=== PATIENT | male | born 1950 | race African-American/Black ===

== ENCOUNTER 2017-07-16 07:36 | Emergency (ER) | payer MEDICARE, MEDICAID ==
[~2017-07-16] VITALS: Ht 188 cm; Wt 98.0 kg
[~2017-07-16 07:36] MED LIST: ACCURETIC1 TAB OR; ACETAMINOPHEN325 MG PO; ADLT ASA LOW81 MG PO; ALLERGY OTC OR; ALLERGY10 M1 PO; ALTOPREV40 MG PO; AMBIEN5 MG PO; AMOXICILLIN250 M1 PO; ATENOLOL100 MG PO; ATENOLOL50 MG OR; ATENOLOL50 MG PO; AUGMENTIN500TAB PO; AVODART0.5 MG PO; BABY ASPIRIN81 MG PO; BL POTASSIUM99 MG OR; CALAN SR180 MG PO; CATAPRES-T0.1 MG/24 TD; CLOBETASOL E0.05 % EX; CLOTRIM/BET2 EX; CLOTRIMAZOLE/BETAME1 TOP; CORTISPORIN OP7.5 ML OP; CYCLOBENZAPR10 MG PO; DEPO-MEDROL40 MG/ML IJ; DICLOFENAC SODI75 MG PO; DICLOFENAC75 MG PO; DIGOXIN0.25 MG PO; DIPHENHYDRAM OR; DIPHENHYDRAM PO; FLOMAX0.4 M1; FLOMAX0.4 M1 PO; FLONASE NASAL50 MCG; FUROSEMIDE40 MG PO; GABAPENTIN300 MG PO; KEFLEX500 MG PO; LEVEMIR FL100 UNIT/M SC; LEVOTHYROXIN50 MCG PO; LIDODERM5 %; LIDODERM5 % EX; LIDODERM5 % TD; LORTAB 10 PO; LOTRISONE EX; LOTRISONE TOP; LYRICA75 MG PO; MEDDOSEPAK PO; MELOXICAM7.5 MG PO; METFORMIN500 M1 PO; METFORMIN500 MG PO; METO50TA52 OR; METOPROLOL TAR100 MG PO; MICONAZOLE23 EX; NITROSTAT0.4 MG SL; NORCO1 TA1 PO; NORCO1 TAB PO; NOVOLIN 701000 UNITS SC; NOVOLOG FLEXPEN SC; OMEPRAZOLE40 MG PO; ONE TOUCH ULTRA 100 EX; OXYBUTININ OR; OXYBUTININ PO; OXYBUTYNIN5 MG PO; OXYCO/APAP1 TA1; OXYCO/APAP1 TA1 PO; OXYCOD/APAP1 TA4 PO; PERCOCET 10/31 COMBO PO; PERCOCET1 TA5 PO; PLAVIX75 MG PO; PRAVASTATIN40 MG PO; PREDNISONE10 MG PO; PREDNISONE20 MG PO; PRILOSEC40 MG PO; QUINAPRIL10 MG OR; QUINAPRIL10 MG PO; QUINAPRIL20 MG PO; RESTORIL15 MG PO; SAW PALMETTO160 MG OR; TAMSULOSIN HCL0.4 MG PO; TEMAZEPAM15 MG PO; TRAMADOL HCL50 MG PO; TRAZODONE50 MG PO; TRIAM/NYSTAT EX; TRIAMCINOLON0.11 EX; TRIAMCINOLON0.5 % EX; ULTRAM50 MG OR; VERAPAMIL120 M1 PO; VIAGRA100 MG PO; VIAGRA25 MG PO; ZOFRAN ODT4 MG PO; ZPAK PO; [UNRECOGNIZED DRUG - SUPPLY] SC
[2017-07-16 08:32] LABS: INFLUENZA A NONE DETECTED (NONE DETECT); INFLUENZA B NONE DETECTED (NONE DETECT)
[2017-07-16 08:43] VITALS: BP 160/85
== END 2017-07-16 09:00 | disposition home or self-care (01) ==
LOC: ED 07:36
PROVIDERS: Emergency Medicine
DX: B34.9 Viral infection, unspecified (principal); R51 Headache; R11.2 Nausea with vomiting, unspecified; M79.1 Myalgia

== ENCOUNTER → 2018-09-03 | Outpatient (REF) | payer MEDICARE, MEDICAID ==
[~2018-09-03] MED LIST changes: +FENTANYL25 MCG/HR TD; +ROSUVASTATIN CA40 MG PO
[2018-09-03 14:02] LABS: HEMATOCRIT 37.7 % (39.0-50.0); HEMOGLOBIN 12.4 g/dl (14.0-18.0); MEAN CELL VOLUME 91.5 fL CALC (80.0-100.0); MEAN CORPUSCULAR HGB 30.1 pG CALC (26.0-32.0); MEAN CORPUSCULAR HGB CONC 32.9 g/L CALC (32.0-36.0); NEUT# 1.94 thou/uL (1.82-7.42); RED BLOOD COUNT 4.12 mill/uL (4.70-6.10); RED CELL DISTRI WIDTH 13.2 % (11.5-15.5)
[2018-09-03 14:19] LABS: ACT PARTIAL THROMBO TIME 24.8 SECONDS (20.0-32.5); ANION GAP 12 (6-22 (CALC)); BUN 14 mg/dL (8-23); BUN/CREATININE RATIO 17 (12-20 (CALC)); CARBON DIOXIDE 27 mmol/l (22-30); CHLORIDE 108 mmol/l (95-108); CREATININE 0.8 mg/dL (0.7-1.3); GFR > 60 ML/MIN (>=60 (CALC)); GFR FOR AFR.AMER. > 60 ML/MIN (>=60 (CALC)); POTASSIUM 4.4 mmol/l (3.5-5.1); PROTHROMBIN TIME 10.6 SECONDS (9.0-12.5); SODIUM 142 mmol/l (137-146)
== END | disposition home or self-care (01) ==
LOC: LAB 13:25
PROVIDERS: ATTEND Internal Medicine Interventional Cardiology
DX: Z01.818 Encounter for other preprocedural examination (principal); I21.4 Non-ST elevation (NSTEMI) myocardial infarction; Z79.01 Long term (current) use of anticoagulants; Z01.811 Encounter for preprocedural respiratory examination

== ENCOUNTER → 2019-01-28 | Outpatient (REF) | payer MEDICARE, MEDICAID ==
[2019-01-28 09:42] LABS: HEMOGLOBIN 12.7 g/dl (14.0-18.0); IMMATURE GRANULOCYTES 0.3 % (0.0-5.0); MEAN CELL VOLUME 92.9 fL CALC (80.0-100.0); MEAN CORPUSCULAR HGB 30.2 pG CALC (26.0-32.0); MEAN CORPUSCULAR HGB CONC 32.6 g/L CALC (32.0-36.0); NEUT# 1.51 thou/uL (1.82-7.42); RED BLOOD COUNT 4.2 mill/uL (4.70-6.10); RED CELL DISTRI WIDTH 13.4 % (11.5-15.5)
[2019-01-28 10:00] LABS: ALKALINE PHOSPHATASE 76 u/l (38-126); ANION GAP 11 (6-22 (CALC)); BILIRUBIN, TOTAL 0.4 mg/dL (0.0-1.4); BUN 19 mg/dL (8-23); BUN/CREATININE RATIO 24 (12-20 (CALC)); CALCULATED LDLCHOLESTEROL 62 mg/dL (62-129 (CALC)); CARBON DIOXIDE 26 mmol/l (22-30); CHLORIDE 106 mmol/l (95-108); CHOLESTEROL HDL RATIO 2.3 (<4.4 (CALC)); CREATININE 0.8 mg/dL (0.7-1.3); GFR > 60 ML/MIN (>=60 (CALC)); GFR FOR AFR.AMER. > 60 ML/MIN (>=60 (CALC)); HDL CHOLESTEROL 59 mg/dL (>=40); POTASSIUM 4.4 mmol/l (3.5-5.1); SGOT/AST 38 u/l (19-48); SODIUM 138 mmol/l (137-146); TOTAL CHOLESTEROL 133 mg/dl (0-199); TOTAL PROTEIN 6.8 g/dL (6.3-8.2); TRIGLYCERIDES REFLEX TO dLDL 61 mg/dl (30-149); VLDL CHOLESTROL 12 mg/dl (0-38 (CALC))
[2019-01-28 10:31] LABS: TSH, 3RD GENERATION 2.33 uIU/mL (0.47 - 4.68)
== END | disposition home or self-care (01) ==
LOC: LAB 08:49
PROVIDERS: ATTEND Internal Medicine Geriatric Medicine
DX: M54.16 Radiculopathy, lumbar region (principal); E03.9 Hypothyroidism, unspecified; I10 Essential (primary) hypertension; Z12.5 Encounter for screening for malignant neoplasm of prostate

== ENCOUNTER 2019-09-28 20:23 | Emergency (ER) | payer MEDICARE, MEDICAID ==
[~2019-09-28] VITALS: Ht 188 cm; Wt 100.0 kg
[~2019-09-28 20:23] MED LIST changes: +CRESTOR20 MG PO; +ENTRESTO 49-511 TAB PO; +FINASTERIDE5 MG PO; +NITROGLYCERIN0.4 MG SL; +TAMSULOSIN0.4 MG PO; +TOPROL XL100 MG PO
[2019-09-28 21:00] LABS: URINE BILIRUBIN - DIPSTICK NEGATIVE (NEGATIVE); URINE BLOOD DIPSTICK TRACE-LYSED (NEGATIVE); URINE COLOR YELLOW; URINE GLUCOSE - DIPSTICK NEGATIVE (NEGATIVE); URINE KETONE NEGATIVE (NEGATIVE); URINE LEUK ESTERASE NEGATIVE (NEGATIVE); URINE NITRITE - DIPSTICK NEGATIVE (Negative); URINE PH 6.5 (4.5-8.0); URINE PROTEIN - DIPSTICK NEGATIVE (NEG-TRACE); URINE SPECIFIC GRAVITY 1.015; URINE UROBILINOGEN - DIPSTICK 0.2 E.U./dL (0.2)
[2019-09-28 21:29] VITALS: BP 147/65
== END 2019-09-28 21:32 | disposition home or self-care (01) ==
LOC: ED 20:23
PROVIDERS: Emergency Medicine
PROC: 0T9B70Z Drainage of Bladder with Drainage Device, Via Natural or Artificial Opening (ICD-10-PCS; principal; 2019-09-28)
DX: R33.9 Retention of urine, unspecified (principal); F17.200 Nicotine dependence, unspecified, uncomplicated

== ENCOUNTER 2019-09-29 10:01 | Emergency (ER) | payer MEDICARE, MEDICAID ==
[~2019-09-29] VITALS: Ht 188 cm; Wt 99.1 kg
[2019-09-29 11:12] VITALS: BP 155/77
== END 2019-09-29 11:20 | disposition home or self-care (01) ==
LOC: ED 10:01
DX: T83.84XA Pain due to genitourinary prosthetic devices, implants and grafts, initial encounter (principal); T83.031A Leakage of indwelling urethral catheter, initial encounter; I10 Essential (primary) hypertension; F17.200 Nicotine dependence, unspecified, uncomplicated; Y84.6 Urinary catheterization as the cause of abnormal reaction of the patient, or of later complication, without mention of misadventure at the time of the procedure

== ENCOUNTER 2019-12-17 | Day surgery (SDC) | payer MEDICARE, MEDICAID ==
[~2019-12-17] MED LIST changes: +ASPIRIN81 MG PO
== END 2019-12-17 10:50 | disposition home health service (06) ==
PROC: 0VB08ZZ Excision of Prostate, Via Natural or Artificial Opening Endoscopic (ICD-10-PCS; principal; 2019-12-17)
DX: N40.1 Benign prostatic hyperplasia with lower urinary tract symptoms (principal); N13.8 Other obstructive and reflux uropathy; R33.8 Other retention of urine; R39.12 Poor urinary stream; I10 Essential (primary) hypertension; I25.10 Atherosclerotic heart disease of native coronary artery without angina pectoris; E03.9 Hypothyroidism, unspecified; F17.210 Nicotine dependence, cigarettes, uncomplicated; Z95.1 Presence of aortocoronary bypass graft

== ENCOUNTER 2021-07-02 00:35 | Observation (INO) | payer MEDICARE, MEDICAID ==
[~2021-07-02] VITALS: Ht 185.4 cm; Wt 87.0 kg
[2021-07-02] MEDS ORDERED: OXYCODONE20 M1 PO (01:18)
[2021-07-02 02:16] LABS: HEMOGLOBIN 10.8 g/dl (14.0-18.0); IMMATURE GRANULOCYTES 0.4 % (0.0-5.0); MEAN CELL VOLUME 95.8 fL CALC (80.0-100.0); MEAN CORPUSCULAR HGB 30.4 pG CALC (26.0-32.0); MEAN CORPUSCULAR HGB CONC 31.8 g/dL CAL (32.0-36.0); NEUT# 5.76 thou/uL (1.82-7.42); RED BLOOD COUNT 3.55 mill/uL (4.70-6.10); RED CELL DISTRI WIDTH 13.2 % (11.5-15.5)
[2021-07-02 02:46] LABS: ALBUMIN 3.8 g/dL (3.2-5.0); ALKALINE PHOSPHATASE 62 u/l (38-126); ANION GAP 11 (6-22 (CALC)); BUN 16 mg/dL (8-23); BUN/CREATININE RATIO 21 (12-20 (CALC)); CARBON DIOXIDE 24 mmol/l (22-30); CHLORIDE 106 mmol/l (95-108); CREATININE 0.8 mg/dL (0.7-1.3); GFR > 60 ML/MIN (>=60 (CALC)); GFR FOR AFR.AMER. > 60 ML/MIN (>=60 (CALC)); POTASSIUM 3.9 mmol/l (3.5-5.1); SGOT/AST 40 u/l (19-48); SODIUM 137 mmol/l (137-146); TOTAL PROTEIN 6.7 g/dL (6.3-8.2)
[2021-07-02 02:54] LABS: BILIRUBIN, TOTAL 0.5 mg/dL (0.0-1.4)
[2021-07-02 02:59] LABS: MYOGLOBIN 67 ng/mL (0 - 121)
[2021-07-02 03:02] LABS: ACT PARTIAL THROMBO TIME 20.1 SECONDS (20.0-32.5); INTERNATIONAL NORMALIZED RATIO 1.1 RATIO (0.7-1.3)
[2021-07-02 03:20] LABS: D-DIMER 0.77 mg/L (0.19-0.60)
[2021-07-02 07:31] VITALS: BP 97/47
[2021-07-02 08:03] VITALS: BP 120/49
== END 2021-07-02 12:53 | disposition home or self-care (01) ==
LOC: ED 00:35 → ED-I 05:12 → ED 05:23 → MS2 05:24
PROVIDERS: Family Medicine; ADMIT Internal Medicine; ATTEND Internal Medicine
DX: T40.2X1A Poisoning by other opioids, accidental (unintentional), initial encounter (principal); R09.02 Hypoxemia; G89.29 Other chronic pain; M54.5 Low back pain; I10 Essential (primary) hypertension; I25.10 Atherosclerotic heart disease of native coronary artery without angina pectoris; E78.5 Hyperlipidemia, unspecified; E03.9 Hypothyroidism, unspecified; Z95.1 Presence of aortocoronary bypass graft; Z87.891 Personal history of nicotine dependence; Z20.822 Contact with and (suspected) exposure to COVID-19
CPT/HCPCS: G0378; J1650; Q9967

== ENCOUNTER 2024-08-16 19:11 | Emergency (ER) | payer MEDICARE, MEDICAID ==
[~2024-08-16] VITALS: Ht 182.9 cm; Wt 79.0 kg
[~2024-08-16 19:11] MED LIST changes: +METFORMIN500 M2 PO; +MORPHINE SULFAT30 M2 PO; +OMEPRAZOLE DR40 MG; +OXYCODONE20 M1 PO
[2024-08-16] MEDS ORDERED: Diph, Acellular Pertussis, Tet 0.5 ML/VIAL (Tdap) SDV IM ONE (21:10)
[2024-08-16 21:18] VITALS: BP 100/51
== END 2024-08-16 21:47 | disposition home or self-care (01) ==
LOC: ED 19:11
DX: S60.372A Other superficial bite of left thumb, initial encounter (principal); I10 Essential (primary) hypertension; E11.9 Type 2 diabetes mellitus without complications; E78.5 Hyperlipidemia, unspecified; I25.10 Atherosclerotic heart disease of native coronary artery without angina pectoris; W59.11XA Bitten by nonvenomous snake, initial encounter; Y92.009 Unspecified place in unspecified non-institutional (private) residence as the place of occurrence of the external cause; Z79.84 Long term (current) use of oral hypoglycemic drugs; Z95.1 Presence of aortocoronary bypass graft